=== PATIENT | male | born 1970 | race Caucasian/White ===

== ENCOUNTER 2019-12-07 17:24 | Emergency (ER) | payer MEDICARE, SELFPAY ==
[2019-12-07 17:26] VITALS: BP 163/100; PULSE 114; RESP 18; TEMP 36.6; O2SAT 98; BMI 47.2
--- NOTE | 2019-12-07 17:30 | ED.RN ---
Candelaria Vines sister, phone number [phone]. Also concerned about wound on back of r foot, back of ankle, also on back side of left leg. Concerned for drainage and odor. Nt healing. Concerned for safety of being home alone, fall risk, unsteady when ambulating.
--- NOTE | 2019-12-07 18:09 | ED.DCSUM_ITS ---
- ER Visit Summary Date of Service: 12/07/19 Chief Complaint: Bilateral leg drainage and redness History of Present Illness: The patient is a 49 M who presents with redness and drainage from both lower legs for the past 2 weeks. Patient states he has some aching in his lower legs. Patient states nothing makes it better or worse. Patient states the drainage is serous and not purulent. Patient denies any fevers or chills. Patient denies any chest pain or shortness of breath. Patient denies any nausea or vomiting. Patient states he had similar symptoms in September and was placed on Keflex. Patient states the Keflex did not seem to help at that time but was not put on any other antibiotics at that time. Physical Examination: Vital signs are stable except for mild tachycardia of 114. Patient is afebrile. Patient is in no acute distress. Oral mucosa is pink and moist. Neck is supple. Trachea is midline. There is no JVD. Heart was regular rate and rhythm. Lungs are clear and equal bilaterally. Abdomen is soft. Bowel sounds are normal. There is no tenderness. Extremities are intact. There is erythema and warmth over the lower extremities, worse on the right. There is some mild induration bilaterally. There is some serous drainage noted on the anterior aspect of the lower legs bilaterally. Pedal pulses are equal bilaterally. Sensation was intact light touch bilaterally in the lower extremities. Strength is 5/5 bilaterally in plantarflexion and dors iflexion of the ankles. Test Results: CBC and comprehensive metabolic profile were obtained and were essentially within normal limits. Emergency Department Course and Treatment: Patient was given a dose of Unasyn here. Patient was given prescriptions for Augmentin and Bactrim. Patient was instructed to follow-up with his primary care physician in 5 to 7 days. Patient understood and was agreeable with the plan. All questions were answered. Disposition: Discharge home Impression: Cellulitis bilateral lower extremities This note was generated with [employer] dictation software. It may contain incorrect words, spelling, and punctuation that were not noted in review of the chart prior to signing ED Disposition - Plan for ED Patient: Disposition: Home or Assisted Living Diagnosis: Cellulitis of both lower extremities Instructions: ED Cellulitis Prescriptions: Amox/Clavulanate Tablet [Augmentin Tablet] 875 mg PO Q12H #20 tab Prescription Printed Smz/Tmp Ds [Bactrim Ds] 1 tab PO BID #20 tab Prescription Printed Referrals: NOT,DEFINED [NON-STAFF] - Panda Edwards DO [Primary Care Provider] - 5-7 Days
[2019-12-07 18:59] LABS: Absolute Lymphocyte Count 1.35 X10^3/uL (0.83-4.51); Absolute Neutrophil Count 6.9 X10^3/uL (2.0-7.7); Basophil# 0.03 X10^3/uL; Basophil% 0.3 % (0-1); Eosinophil# 0.15 X10^3/uL; Eosinophils% 1.7 % (0-5); Hematocrit 44.1 % (40-54); Hemoglobin 13.2 g/dL (13.0-16.5); Lymphocyte # 1.35 X10^3/ul (4.0); Lymphocyte % 14.9 % (19-41); Mean Corp Hgb Conc 29.9 g/dL (32-36); Mean Platelet Vol. 9.6 fl (6.2-12.0); Monocyte# 0.62 X10^3/uL; Monocyte% 6.9 % (0-10); NRBC Flagged by Analyzer 0 % (0-5); Neutrophil # 6.85 X10^3/uL (2.7-7.7); Neutrophil % 75.6 % (47-70); Platelet Count 342 K/mm3 (150-450); RBC Distribution Width CV 16.2 % (11.6-14.6); RBC Distribution Width SD 51.1 fl (35.1-43.9); Red Blood Count 5.07 M/mm3 (4.6-6.2); White Blood Count 9.1 K/mm3 (4.4-11.0)
[2019-12-07 19:05] VITALS: BP 153/71; PULSE 105; RESP 20; TEMP 36.8; O2SAT 98
[2019-12-07 19:15] LABS: ALB/GLOB Ratio 0.6 RATIO (0.9-2.4); AST(SGOT) 18 U/L (15-37); Alanine Aminotransfer ALT/SGPT 21 U/L (16-61); Alkaline Phosphatase 146 U/L (45-117); Anion Gap 3 (5-15); BUN 23 mg/dL (7-18); BUN/Creat Ratio 19.7 RATIO (10-20); Chloride 105 mmol/L (98-107); Creatinine, Serum 1.17 mg/dL (0.70-1.30); EST Glomerular Filtration Rate 71 mL/min (>60); Est Glom Filt Rate - Afr Amer 86 mL/min (>60); Estimated Creatinine Clearance 78.05 ml/min; Globulin 4.9 g/dL (2.2-4.2); Glucose 124 mg/dL (74-106); Potassium 3.2 mmol/L (3.5-5.1); Protein, Total 7.9 g/dL (6.4-8.2); Sodium Level 142 mmol/L (136-145)
--- NOTE | 2019-12-07 20:40 | ED.RN ---
PROVIDED MINIMAL ASSISTANCE HELPING PT TO GET DRESSED AND PUT SHOES ON. WHEELCHAIR TO LOBBY WHERE HE LOADED HIMSELF INTO SISTER'S CAR. UPDATED SISTER ON HIS POC TODAY AND F/U WITH [facility]PAT[facility] [place] AND PCP APPT. ALL QUESTIONS ANSWERED, NO FURTHER CONCERNS.
== END 2019-12-07 20:37 | disposition home or self-care (01) ==
PROVIDERS: Emergency Provider Emergency Medicine; PCP Family Medicine
DX: L03.116 Cellulitis of left lower limb (principal); L03.115 Cellulitis of right lower limb; I10 Essential (primary) hypertension; R00.0 Tachycardia, unspecified; E66.9 Obesity, unspecified; Z79.899 Other long term (current) drug therapy; Z79.82 Long term (current) use of aspirin
CPT/HCPCS: 80053; 85025; 87040; 96365; 99283; J7050; A4216; J0295